=== PATIENT | male | born 1995 | race Two or more races ===

== ENCOUNTER 2022-08-07 01:09 | Emergency (ER) | payer MEDICAID ==
[~2022-08-07] VITALS: Ht 167.6 cm; Wt 97.3 kg
[2022-08-07 06:35] VITALS: BP 118/72
[2022-08-07] MEDS ORDERED: KETOROLAC TROMETH 60MG/2ML VIAL IM ONE (06:45)
[2022-08-07] MEDS ORDERED: IBUP800T26 PO (06:50)
[2022-08-07] MEDS ORDERED: HYDR-4902 PO (06:50)
== END 2022-08-07 07:13 | disposition home or self-care (01) ==
LOC: ER 01:09
DX: S16.1XXA Strain of muscle, fascia and tendon at neck level, initial encounter (principal); T14.8XXA Other injury of unspecified body region, initial encounter; M54.50 Low back pain, unspecified; M54.6 Pain in thoracic spine; R51.9 Headache, unspecified; V49.9XXA Car occupant (driver) (passenger) injured in unspecified traffic accident, initial encounter; Y93.89 Activity, other specified; Y92.410 Unspecified street and highway as the place of occurrence of the external cause; Y99.8 Other external cause status
CPT/HCPCS: 70450; 72125; 96372; 99285; J1885